=== PATIENT | male | born 1970 | race Caucasian/White ===

== ENCOUNTER → 2017-12-02 | Outpatient (CLI) | payer BC ==
--- NOTE | 2017-12-02 22:08 | CONS ---
CONSULTATION PCP: Dr. Little. A 47-year-old male patient, comes into the sleep center upon the request of his significant other due to concerns of sleep apnea. The patient snores very loud to the point where nobody can sleep in the same room with him. He stops breathing on multiple occasions. He wakes up choking and gasping for air and has excessive fatigue and sleepiness during the day. He has noted increased tiredness and fatigue and sleepiness and he cannot take it anymore. He is falling asleep during the day. He is having some trouble with memory and concentration. 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 He goes to bed at around 9:00 pm and wakes up at 4:20 am in the morning. He does not fall asleep while driving. Never been involved in a motor vehicle accident. His weight has been stable. He is trying to lose weight. No other medical problems or comorbidities other than diabetes mellitus. No restlessness in lower extremities. No sleep paralysis. No hallucinations. No cataplexy. He has some mild sleep talking. PAST MEDICAL HISTORY: Obesity, hypertension. SURGICAL HISTORY: Negative. DRUG ALLERGIES: Not known. MEDICATIONS: Includes Lasix, lisinopril, fish oil and potassium. SOCIAL HISTORY: Nonsmoker. No history of alcohol. No history of IV drugs. He drinks Mountain Dew. FAMILY HISTORY: Negative for sleep apnea. REVIEW OF SYSTEMS: 12-point review of system was done. Positive findings were all mentioned above in the history of present illness. PHYSICAL EXAMINATION: BP is 145/84, pulse 96, respirations 16, temperature 97.9. Saturation 97% on room air. Weight is 252. Height is 5 feet 8 inches. Neck size is 19 inches. General appearance: Obese, calm, comfortable. Head is atraumatic, normocephalic. Neck is short, supple neck. No goiter or neck masses. LUNGS: Diminished breath sounds; otherwise clear. HEART: Sounds are regular rate and rhythm. Normal S1, S2. No S3, S4. No murmurs. ABDOMEN: Soft, nontender. No organomegaly. EXTREMITIES: No edema. No cyanosis or clubbing. NEUROLOGIC: The patient is alert and oriented times three. There is no focal neurological deficits. PSYCHIATRIC: No anxiety or depression. SKIN: Negative for wounds or ulceration. IMPRESSION: 1. Obstructive sleep apnea suspected currently under investigation. 2. Obesity with a BMI of 38.3. 3. Hypertension. PLAN: High suspicion for obstructive sleep apnea. Proceed with sleep study and treat accordingly. Meanwhile encourage weight loss and implement good sleep hygiene measures. Will continue to follow. MMODL / IJN: [id number] /
== END | disposition home or self-care (01) ==
LOC: SLEEP 16:38
PROVIDERS: ATTEND Internal Medicine Critical Care Medicine
DX: G47.33 Obstructive sleep apnea (adult) (pediatric) (principal); I10 Essential (primary) hypertension; E66.9 Obesity, unspecified; Z68.38 Body mass index [BMI] 38.0-38.9, adult
CPT/HCPCS: 99211

== ENCOUNTER → 2018-03-17 | Outpatient (CLI) | payer BC ==
--- NOTE | 2018-03-17 18:08 | PN ---
PROGRESS NOTE This is a 47-year-old male patient coming in for a compliancy followup regarding his JOSE treatment. The patient was diagnosed having severe obstructive sleep apnea with an AHI of 68 and currently has a CPAP pressure of 11 cm of water. He reports marked improvement in his sleep quality. He is sleeping much better. He is waking up much more alert and refreshed during the day. He does not have to take any naps or fall asleep in the afternoon. Based on the compliancy data over the past 30 days, the patient has been using the CPAP every night and his CPAP use for more than 4 hours is 100%. His average CPAP use is around 7 hours and 2 minutes. His AHI while on treatment is down to 2.1. His treatment has been extremely successful. His Kelayres score is down to 6. REVIEW OF SYSTEMS: Twelve-point review of systems was done. Trying to lose weight. No nocturnal heartburn, shortness of breath or chest pain. No major hypersomnia or sleepiness during the day. Kelayres score is down to 6. BP is 137/76, pulse 88, respiration 16, temperature 98.1. Weight is 255. Saturation 95% on room air. GENERAL APPEARANCE: Calm, comfortable. HEAD: Atraumatic, normocephalic. NECK: Supple. No JVD or goiter or neck masses. Mallampati class IV. LUNGS: Clear to auscultation. Heart sounds are regular rate and rhythm. Normal S1, S2. No S3, S4. No murmurs. ABDOMEN: Soft, non-tender. No organomegaly. EXTREMITIES: No edema. No cyanosis or clubbing. NEUROLOGIC: The patient is alert and oriented x3. There is no focal neurological deficit. PSYCHIATRIC: Negative for anxiety or depression. IMPRESSION: 1. Severe symptomatic obstructive sleep apnea with an apnea/hypopnea index of 68. The patient is undergoing successful CPAP therapy at a pressure of 11 cm of water. 2. Hypersomnia, improved. 3. Obesity. PLAN: Continue CPAP therapy at the same level of pressure. Treatment has been successful. The patient has been compliant. Encourage weight loss. Implement good sleep hygiene measures. See me back here in the sleep center in a year's time; earlier if needed. Treatment has been successful for now. MMODL / IJN: [id number] /
== END | disposition home or self-care (01) ==
LOC: SLEEP 16:27
PROVIDERS: ATTEND Internal Medicine Critical Care Medicine
DX: G47.33 Obstructive sleep apnea (adult) (pediatric) (principal); E66.9 Obesity, unspecified; Z99.89 Dependence on other enabling machines and devices

== ENCOUNTER → 2020-12-26 | Outpatient (CLI) | payer BC ==
--- NOTE | 2020-12-26 15:29 | P.PN ---
Subjective Progress Note Date: 12/26/20 I'm seeing this patient on 12/26/2020 for a follow-up at the sleep Center regarding his obstructive sleep apnea. His last evaluation with me was back in 03/17/2018. The patient is known to me. The patient has been established and severe obstructive sleep apnea and the patient had an AHI of 68. CPAP therapy was again changed for him as the patient benefited significantly from CPAP therapy and the patient has felt very well since. His sleep quality was improved. He continues to be very compliant to CPAP unit and he continues to benefit from the treatment. He is currently at a CPAP pressure of 11 cm of water and he has acclimated line with a temperature of the tubing set at 70F. He denies having any complaints. He has lost a few pounds over this past 3 years. Used to weigh 255 pounds and currently is down to 46. His current Solano score is at 2.I check her compliance data data was collected over the past 30 days. Based on the compliance data, the patient has been utilizing his CPAP every night without any interruption. His compliancy for more than 4 hours at 100%. His been averaging about 7.2 hours of CPAP use per night and is leak is at 18 L per minute and his AHI while on treatment is down to 1.2. He is using the airfit p10 medium size nasal pillows. No issues with hypertension. No issues with CAD or myocardial infarction. No cardiac arrhythmias. No strokes. No other complaints otherwise for now. He is quite active.no anxiety. No depression. No panic attacks. No other significant events over this past 3 years. Objective - Vital Signs Vital signs: BP is 118/78, pulse is 80, respirations 15, weight is 246, Solano score is a 2, BMI 37.5, neck size 19-1/2 inches, BP is 118/78 with a saturation of 99% on room air oxygen. His current body weight is at 246 pounds. - Exam The patient appeared well nourished and normally developed. Vital signs as documented. Head exam is unremarkable. No scleral icterus or corneal arcus noted. Neck is without jugular venous distension, thyromegaly, or carotid bruits. Carotid upstrokes are brisk bilaterally. Lungs are clear to auscultation and percussion. Cardiac exam reveals the PMI to be normally sized and situated. Rhythm is regular. First and second heart sounds normal. No murmurs, rubs or gallops. Abdominal exam reveals normal bowel sounds, no masses, no organomegaly and no aortic enlargement. Extremities are nonedematous and both femoral and pedal pulses are normal.Examination of the skin revealed no evidence of significant rashes, suspicious appearing nevi or other concerning lesions.Neurologically, the patient is awake and alert and the patient does not have any focal neurological deficit. Cranial nerves are essentially intact. Assessment and Plan Plan: 1 obstructive sleep apnea, severe with an AHI of 68. The patient is being successfully treated with a CPAP pressure of 11 cm of water. No complaints for now. The patient has been adequately treated and the patient remains extremely compliant to CPAP unit 2 hypersomnia, recovered and the patient's upper score is down to 2, 3 obesity with interval weight loss. Most recent body weight related to 46 with a BMI of 37.5 4 diabetes mellitus currently on metformin 5 hyperlipidemia currently on Lipitor 6 hypertension currently on lisinopril and Lasix Plan Continue CPAP therapy the same level of pressure of 11 cm of water I'm going to order a new nasal pillow for him which would be an airfit P10 medium-size in addition to climate line, the medication chamber, filters and the rest of the supplies including a head gear. Encourage weight loss Sleep hygiene measures are not adequate No need for a CPAP pressures setting adjustment See me back in a years time in follow-up.
== END | disposition home or self-care (01) ==
LOC: SLEEP 14:57
PROVIDERS: ATTEND Internal Medicine Critical Care Medicine
DX: G47.33 Obstructive sleep apnea (adult) (pediatric) (principal); E66.9 Obesity, unspecified; E11.9 Type 2 diabetes mellitus without complications; E78.5 Hyperlipidemia, unspecified; I10 Essential (primary) hypertension; Z68.37 Body mass index [BMI] 37.0-37.9, adult; Z79.899 Other long term (current) drug therapy